=== PATIENT | female | born 1955 ===

== ENCOUNTER 2016-11-05 15:32 | Emergency (ER) | payer MEDICARE, OTHER ==
[2016-11-05 15:33] VITALS: BMI 30.8
[2016-11-05 15:38] VITALS: TEMP 97.9
[2016-11-05] MEDS ORDERED: Tetanus/Diphtheria Toxoids 0.5 ml Syringe IM ONE ×2 (16:12→16:16)
--- NOTE | 2016-11-05 16:27 | C.PDOC ---
History Of Present Illness A 61 year old female presents to the emergency room with complaints of a bite to her right hand since yesterday. Patient reports that she woke up at night to get water when a big rat bit her right hand. Patient notes a single bite fantasma and cleaned it with soap and water. Patient states that she placed lemon on it. Patient is not up to date with Tetanus vaccinations. Patient denies any fever, headaches, dizziness, vomiting, shortness of breath, or any other complaints. Time Seen by Provider: 11/05/16 15:41 Chief Complaint (Nursing): Bite History Per: Patient History/Exam Limitations: no limitations Onset/Duration Of Symptoms: Days (1) Current Symptoms Are (Timing): Still Present Location Of Injury: Right: Hand Severity: Mild - Animal Bite Description Of The Attack: Unprovoked Attack Description Of The Animal: Other (Rat) Reports Animal Appears: Unknown Reports Animal's Immunization Status: Wild Animal Animal Control Notified: No Past Medical History Reviewed: Historical Data, Nursing Documentation, Vital Signs Vital Signs: Last Vital Signs Temp 97.9 F 11/05/16 15:36 Pulse 75 11/05/16 16:31 Resp 20 11/05/16 16:31 BP 130/70 11/05/16 16:31 Pulse Ox 100 11/05/16 20:48 - Medical History PMH: Anemia, Arthritis (HANDS), Diabetes, HTN, Hypercholesterolemia, Hypothyroidism Denies: Colonic Polyps Surgical History: Denies: Endoscopy Comment Only: Cholecystectomy (GB stone removed) Family History: States: Diabetes - Social History Hx Tobacco Use: No Hx Alcohol Use: No Hx Substance Use: No - Immunization History Hx Tetanus Toxoid Vaccination: No Hx Influenza Vaccination: No Hx Pneumococcal Vaccination: No Review Of Systems Except As Marked, All Systems Reviewed And Found Negative. Constitutional: Negative for: Fever Respiratory: Negative for: Shortness of Breath Gastrointestinal: Negative for: Vomiting Skin: Positive for: Other (Bite to the right hand.) Neurological: Negative for: Headache, Dizziness Physical Exam - Physical Exam Appears: Well, Non-toxic, No Acute Distress Skin: Other (Single bite fantasma on right hand. No active bleeding or erythema.) Head: Atraumatic, Normacephalic Eye(s): bilateral: Normal Inspection Neck: Normal ROM, Supple Cardiovascular: Rhythm Regular Respiratory: Normal Breath Sounds, No Rales, No Rhonchi, No Wheezing Gastrointestinal/Abdominal: Soft, No Tenderness Extremity: Normal ROM, No Tenderness Neurological/Psych: Oriented x3, Normal Speech, Normal Motor, Normal Sensation ED Course And Treatment O2 Sat by Pulse Oximetry: 100 Progress Note: Patient was given tetanus vaccinations and 2nd line prophylactic Doxycycline since patient is allergic to 1st line P. enicillin. As per CDC, "rodents like rats are almost never found to be infected with rabies and have not been known to transmit rabies to humans." Patient informed on CDC recommendations and instructed to follow up with PMD and to return to ED if symptoms arise. Disposition - Disposition Disposition: HOME/ ROUTINE Disposition Time: 16:26 Condition: STABLE Additional Instructions: Follow up with your PMD within 1-2 days. Return to ED if feel worse. Prescriptions: Doxycycline Hyclate [Doryx] 100 mg PO BID #14 cap Instructions: Animal Bite (ED) Print Language: [place] - Clinical Impression Clinical Impression: Rat bite - Scribe Statement The provider has reviewed the documentation as recorded by the Giovanni Lundberg Provider Scribe Attestation: All medical record entries made by the Geeibdanny were at my direction and personally dictated by me. I have reviewed the chart and agree that the record accurately reflects my personal performance of the history, physical exam, medical decision making, and the department course for this patient. I have also personally directed, reviewed, and agree with the discharge instructions and disposition.
[2016-11-05 16:32] VITALS: BP 130/70; PULSE 75; RESP 20
[2016-11-05 17:03] VITALS: O2SAT 100
== END 2016-11-05 16:32 | disposition home or self-care (01) ==
LOC: C.ER 15:32
DX: S61.451A Open bite of right hand, initial encounter (principal); W53.11XA Bitten by rat, initial encounter

== ENCOUNTER 2018-12-04 08:59 | Outpatient (CLI) | payer MEDICARE, OTHER | END 2018-12-04 09:00 | disposition home or self-care (01) | LOC: C.MAMMO 09:00 ==